=== PATIENT | female | born 1950 | race Caucasian/White ===

== ENCOUNTER → 2019-11-20 11:39 | Outpatient (CLI) | payer MEDICARE, OTHER, SELFPAY ==
--- NOTE | 2019-11-20 | DI.CT.S_ITS ---
PROCEDURE: CT ABDOMEN PELVIS W CON INDICATIONS: Right lower quadrant abdominal pain TECHNIQUE: After the administration of oral and intravenous contrast, 5 mm thick sections acquired from the diaphragms to the symphysis. 5 mm thick coronal and sagittal reformats were performed. For radiation dose reduction, the following was used: automated exposure control, adjustment of mA and/or kV according to patient size. COMPARISON: None. FINDINGS: Image quality: Excellent. ABDOMEN: Lung bases: Lung bases are clear. Heart size is normal. Solid organs: Liver is normal in size and enhancement. Gallbladder is unremarkable. Biliary system is non-dilated. Pancreas enhances normally. Spleen is normal in size and enhancement. No adrenal nodules. Kidneys are normal in size and enhancement, without hydronephrosis. Peritoneum and bowel: Focal relatively marked thickening of the wall of the mid ascending colon with mild diffuse cecal and proximal ascending colon wall thickening. Inflammatory change in the surrounding fat. Probable appendectomy clips. No free air or abscess cavity. No free fluid.4 Nodes and vessels: No retroperitoneal or mesenteric adenopathy. Aorta and inferior vena cava are normal in caliber. Miscellaneous: No ventral hernias. PELVIS: Genitourinary: Bladder wall thickness is normal. Miscellaneous: No inguinal hernias or adenopathy. Bones: No suspicious bony lesions. No vertebral body compression fractures. IMPRESSION: Thickening of the cecum, proximal ascending colon, and mid ascending colon, most significant in the mid ascending colon with surrounding inflammatory change in the adjacent fat. Differential diagnosis includes ischemic versus infectious versus inflammatory colitis. Dictated by: Dany Garza M.D. on 11/20/2019 at 13:57 Approved by: Dany Garza M.D. on 11/20/2019 at 14:05
[2019-11-20 12:32] LABS: Add Manual Diff / Slide Review NO; Basophils Absolute Auto 0 /uL (0-100); Basophils Percent Auto 0.7 % (0-2); Eosinophils Absolute Auto 100 /uL (0-450); Eosinophils Percent Auto 2.2 % (2-4); Hematocrit 40.1 % (36-46); Lymphocytes Absolute Auto 1100 /uL (1100-4500); Lymphocytes Percent Auto 24.4 % (25-40); Mean Corpuscular HGB Conc 34.9 % (30-36); Mean Corpuscular Hemoglobin 33.6 PG (26-34); Monocytes Absolute Auto 300 /uL (0-900); Monocytes Percent Auto 6.5 % (3-14); Neutrophils Absolute Auto 3100 /uL (1500-7000); Neutrophils Percent Auto 66.2 % (50-75); Platelet Count 275 X10^3/uL (150-400); Red Blood Cell Count 4.18 X10^6/uL (4.0-5.2); Red Cell Distribution Width 12.1 % (11.6-14.8); White Blood Cell Count 4.6 X10^3/uL (4.5-11.0)
[2019-11-20 12:43] LABS: Alanine Aminotransferase 19 IU/L (<35); Albumin 4.5 g/dL (3.5-5.0); Albumin Globulin Ratio 1.4 (1.0-2.8); Alkaline Phosphatase 77 U/L (38-126); Aspartate Aminotransferase 28 IU/L (14-36); BUN Creatinine Ratio 11.4 (6-22); Bilirubin Total 0.9 mg/dL (0.2-1.3); Blood Urea Nitrogen 8 mg/dL (7-17); Calcium 9.3 mg/dL (8.4-10.2); Carbon Dioxide 28 mmol/L (22-32); Chloride 99 mmol/L (98-107); Estimated Glomerular Filt Rate > 60.0 mL/min (>60); Globulin 3.2 g/dL (1.7-4.1); Glucose 95 mg/dL (80-110); HEMOLYSIS < 15 (0-50); Potassium 4.5 mmol/L (3.4-5.1); Sodium 136 mmol/L (137-145); Total Protein 7.7 g/dL (6.3-8.2)
[2019-11-20 13:00] LABS: Appearance Urine UA CLEAR; Bilirubin Urine UA NEGATIVE (NEGATIVE); Color Urine UA YELLOW; Glucose Urine UA NEGATIVE (Negative); Ketones Urine UA 1+ (NEGATIVE); Leukocyte Esterase Urine UA NEGATIVE (NEGATIVE); Nitrite Urine UA NEGATIVE (Negative); Occult Blood Urine UA TRACE-LYSED (Negative); Protein Urine UA NEGATIVE (Negative); Specific Gravity Urine UA <=1.005 (1.000-1.035); Urobilinogen Urine UA 0.2 E.U./dL (0.2)
[2019-11-20 13:11] LABS: Bacteria Urine Occasional (0-1); RBC Urine 0-1/HPF (0-5/HPF); Squamous Epithelial Cell Urine 0-1 /HPF (0-5/HPF); WBC Urine 0-1/HPF (0-5/HPF)
== END ==
PROVIDERS: Visit Provider Internal Medicine
DX: R10.31 Right lower quadrant pain (principal)
CPT/HCPCS: 36415; 74177; 80053; 81001; 85025; 87086; Q9967

== ENCOUNTER → 2019-11-20 12:17 | Outpatient (ROUT) | payer MEDICARE, OTHER, SELFPAY ==
[2019-11-20 12:19] LABS: Bacteria Urine None Seen; RBC Urine None Seen (0-5/HPF); WBC Urine None Seen (0-5/HPF)
[2019-11-20 14:19] LABS: Appearance Urine UA CLEAR; Bilirubin Urine UA NEGATIVE (NEGATIVE); Color Urine UA YELLOW; Glucose Urine UA NEGATIVE (Negative); Ketones Urine UA TRACE (NEGATIVE); Leukocyte Esterase Urine UA NEGATIVE (NEGATIVE); Nitrite Urine UA NEGATIVE (Negative); Occult Blood Urine UA NEGATIVE (Negative); Protein Urine UA NEGATIVE (Negative); Specific Gravity Urine UA <=1.005 (1.000-1.035); Urobilinogen Urine UA 0.2 E.U./dL (0.2)
[2019-11-20 14:49] LABS: Urine Comments Microscopic Normal
== END ==
PROVIDERS: PCP Internal Medicine; Visit Provider Internal Medicine
DX: R10.31 Right lower quadrant pain (principal)
CPT/HCPCS: 81001; 87086

== ENCOUNTER → 2024-05-23 08:46 | Outpatient (CLI) | payer MEDICARE, OTHER, SELFPAY ==
[2024-05-23 10:09] LABS: Hemoglobin A1C% w Est Avg Glu 5.2 % (4.0-6.0)
[2024-05-23 10:18] LABS: Cholesterol 207 mg/dL (140-199); HDL Cholesterol 95 mg/dL (40-60); LDL Cholesterol Calculated 78 mg/dL (<100); Triglycerides 168 mg/dL (35-150)
[2024-05-23 10:29] LABS: Add Manual Diff / Slide Review NO; Basophils Absolute Auto 0 /uL (0-100); Basophils Percent Auto 0.6 % (0-2); Eosinophils Absolute Auto 100 /uL (0-450); Eosinophils Percent Auto 1.2 % (2-4); Hematocrit 40.3 % (36-46); Hemoglobin 14.2 g/dL (12.0-16.0); Lymphocytes Absolute Auto 1000 /uL (1100-4500); Lymphocytes Percent Auto 18.5 % (25-40); Mean Corpuscular HGB Conc 35.2 % (30-36); Mean Corpuscular Hemoglobin 34.1 PG (26-34); Mean Corpuscular Volume 96.7 fL (80-100); Monocytes Absolute Auto 400 /uL (0-900); Monocytes Percent Auto 6.7 % (3-14); Neutrophils Absolute Auto 4100 /uL (1500-7000); Platelet Count 304 X10^3/uL (150-400); Red Blood Cell Count 4.17 X10^6/uL (4.0-5.2); Red Cell Distribution Width 12.3 % (11.6-14.8); White Blood Cell Count 5.6 X10^3/uL (4.5-11.0)
[2024-05-23 10:49] LABS: TSH w/ Reflex to FT4 0.94 uIU/mL (0.47-4.68)
== END ==
PROVIDERS: PCP Family Medicine; Referring Provider Family Medicine; Visit Provider Family Medicine
DX: Z00.00 Encounter for general adult medical examination without abnormal findings (principal); R53.83 Other fatigue; Z13.1 Encounter for screening for diabetes mellitus; Z13.220 Encounter for screening for lipoid disorders
CPT/HCPCS: 36415; 80061; 83036; 84443; 85025

== ENCOUNTER 2024-08-12 10:39 | Emergency (ER) | payer MEDICARE, OTHER, SELFPAY ==
[2024-08-12] VITALS (7 sets, daily range): BP systolic 111–139; BP diastolic 73–83; PULSE 60–80; RESP 15–28; TEMP 36.6; O2SAT 96–97; BMI 17.4
--- NOTE | 2024-08-12 10:55 | DI.RAD.S_ITS ---
PROCEDURE: XR CHEST 1V INDICATIONS: chest pain TECHNIQUE: One view of the chest was acquired. COMPARISON: None. FINDINGS: Surgical changes and devices: None. Lungs and pleura: There is hyperinflation and chronic interstitial changes without focal infiltrate, pleural effusion or pneumothorax. Mediastinum: Mediastinal contours appear normal. Heart size is normal. Bones and chest wall: No suspicious bony lesions. Overlying soft tissues appear unremarkable. IMPRESSION: Hyperinflation and chronic interstitial changes Approved by: Evan Thrasher M.D. on 08/12/2024 at 10:47
--- NOTE | 2024-08-12 11:12 | EKG_ITS ---
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
[2024-08-12 11:26] LABS: Add Manual Diff / Slide Review NO; Basophils Absolute Auto 0 /uL (0-100); Basophils Percent Auto 0.5 % (0-2); Eosinophils Absolute Auto 100 /uL (0-450); Eosinophils Percent Auto 1.2 % (2-4); Hematocrit 38.8 % (36-46); Hemoglobin 13.6 g/dL (12.0-16.0); Lymphocytes Absolute Auto 1500 /uL (1100-4500); Lymphocytes Percent Auto 18.8 % (25-40); Mean Corpuscular Hemoglobin 33.1 PG (26-34); Mean Corpuscular Volume 94.5 fL (80-100); Monocytes Absolute Auto 300 /uL (0-900); Monocytes Percent Auto 4.2 % (3-14); Neutrophils Absolute Auto 5800 /uL (1500-7000); Neutrophils Percent Auto 75.3 % (50-75); Platelet Count 308 X10^3/uL (150-400); Red Cell Distribution Width 11.9 % (11.6-14.8); White Blood Cell Count 7.7 X10^3/uL (4.5-11.0)
[2024-08-12 11:35] LABS: Prothrombin Time 11.2 SECONDS (9.4-12.5)
[2024-08-12 11:38] LABS: PTT Partial Thromboplastin Tim 33 SECONDS (25.1-36.5)
[2024-08-12 11:40] LABS: Alanine Aminotransferase 26 IU/L (<35); Albumin 4.3 g/dL (3.5-5.0); Albumin Globulin Ratio 1.7 (1.0-2.8); Alkaline Phosphatase 63 U/L (38-126); Aspartate Aminotransferase 35 IU/L (14-36); Bilirubin Total 0.6 mg/dL (0.2-1.3); Blood Urea Nitrogen 11 mg/dL (7-17); Calcium 8.9 mg/dL (8.4-10.2); Carbon Dioxide 23 mmol/L (22-32); Chloride 101 mmol/L (98-107); Creatine Kinase 78 U/L (30-135); Estimated Glomerular Filt Rate > 60 mL/min (>60); Globulin 2.6 g/dL (1.7-4.1); Glucose 101 mg/dL (80-110); HEMOLYSIS 22 (0-50); Lipase 112 U/L (23-300); Magnesium 1.8 mg/dL (1.6-2.3); Potassium 3.9 mmol/L (3.4-5.1); Sodium 132 mmol/L (137-145); Total Protein 6.9 g/dL (6.3-8.2)
[2024-08-12 11:51] LABS: NT-proBNP (BNP-Adult 18+) 40 pg/mL (<125); Troponin I < 0.012 ng/mL (0.01-0.034)
--- NOTE | 2024-08-12 12:23 | PC.NURSE ---
patient reports intermittant shooting pain down Right leg
--- NOTE | 2024-08-12 12:26 | ED_ITS ---
HPI - Arrhythmia/Palpitations General Chief Complaint: Arrhythmia/Palpitations Stated Complaint: Palpitations, L Leg Pain Time Seen by Provider: 08/12/24 11:24 History of Present Illness HPI narrative: Patient 74-year-old female history of asthma, presenting to heart palpitations. He reports she was having some palpitations yesterday off and on. She does not know how fast her heart was going. No chest pain or shortness of breath. It happened both at rest and with exertion. She has not feeling now she feels like she is better. She also occasionally gets left leg burning down her leg. It has like a sharp stinging sensation it lasts for 2nd and then is gone. She has no back pain. She was not sure if it was related. She has no weakness. She is going for colonoscopy in a couple of days and wanted to get checked out. Related Data Home Medications Medication Instructions Recorded Confirmed CHOLECALCIFEROL (VITAMIN D3) 0 iu PO Q DAY ##0 01/12/10 05/23/24 (Vitamin D3) MULTIVITAMIN (Multivitamin 0 cap PO Q DAY ##0 01/12/10 05/23/24 -) [CALCIUM] Q DAY ##0 01/12/10 05/23/24 Previous Rx's Medication Instructions Recorded albuterol sulfate 90 mcg/actuation 2 puff inhalation Q6H PRN 02/24/24 aerosol inhaler (ProAir HFA) bronchospasm #17 grams Allergies Allergy/AdvReac Type Severity Reaction Status Date / Time No Known Drug Allergies Allergy Verified 05/23/24 08:00 Blue cheese Allergy Uncoded 05/23/24 08:00 Patient History Medical History Osteopenia Asthma Social History Smoking Status: Never smoker second hand exposure: No alcohol intake: current substance use type: does not use Smoking Status: Never smoker Exam Initial Vital Signs Initial Vital Signs: Vital Signs Temperature 97.8 F 08/12/24 10:52 Pulse Rate 60 08/12/24 10:52 Respiratory Rate 16 08/12/24 10:52 Blood Pressure 139/83 08/12/24 10:52 Pulse Oximetry 97 08/12/24 10:52 Oxygen Delivery Method Room Air 08/12/24 10:52 GENERAL: Alert well-appearing 74-year-old female and in no acute distress. HEENT: Head atraumatic,EOMI, pupils reactive, face symmetric, moist mucous membranes CARDIOVASCULAR: Regular rate and rhythm without murmurs, rubs or gallops. RESPIRATORY: Breath sounds equal bilaterally, no wheezes rales or rhonchi. ABDOMEN: Soft, nontender. Normoactive bowel sounds all 4 quadrants. No guarding or rebound. EXTREMITIES: Normal range of motion, no clubbing or edema. Neurovascularly intact NEUROLOGICAL: Alert and oriented x4.Normal gait and speech. SKIN: Warm, dry, no laceration, no petechiae, no rashes or lesions. Scores HEART Score Heart Score history: Slightly Suspicious Heart Score EKG: Normal Heart Score Age: > or = 65 years old Heart Score risk factors: No known risk factors Heart Score troponin: < or = to normal limit Heart Score Total: 2 Course Orders Ordered: ED Orders 08/12/24 10:55 XR chest 1V Stat EKG-12 Lead Stat 08/12/24 11:10 Complete Blood Count AUTO DIFF Stat Comprehensive Metabolic Panel Stat Lipase Stat Magnesium Stat NT-proBNP (BNP-Adult 18+) Stat PTT Partial Thromboplastin Zhou Stat Prothrombin Time INR Stat Troponin & CK Cardiac Panel Stat Discontinued Medications Aspirin (Aspirin 81 Mg Chew Tab) 324 mg PO NOW ONE Stop: 08/12/24 10:56 Last Admin: 08/12/24 11:31 Dose: Not Given Documented By: CTS Vital Signs Vital signs: Vital Signs - 8 hr 08/12/24 10:52 08/12/24 11:08 08/12/24 11:08 Temperature 97.8 F Pulse Rate 60 80 Respiratory Rate 16 18 Blood Pressure 139/83 127/73 Pulse Oximetry 97 97 Oxygen Delivery Method Room Air Room Air 08/12/24 11:30 08/12/24 11:30 08/12/24 12:00 Temperature Pulse Rate 73 69 Respiratory Rate 28 H 15 Blood Pressure 130/73 Pulse Oximetry 96 96 Oxygen Delivery Method Room Air 08/12/24 12:22 08/12/24 12:22 08/12/24 12:23 Temperature Pulse Rate 69 Respiratory Rate 16 Blood Pressure 111/78 111/78 Pulse Oximetry 96 Oxygen Delivery Method 08/12/24 12:30 08/12/24 12:30 Temperature Pulse Rate 75 Respiratory Rate 15 Blood Pressure 118/76 Pulse Oximetry 96 Oxygen Delivery Method MDM - Arrhythmia/Palpitations Lab Data 08/12/24 11:10 08/12/24 11:10 Labs: Lab Results 08/12/24 Range/Units 11:10 WBC 7.7 (4.5-11.0) X10^3/uL RBC 4.10 (4.0-5.2) X10^6/uL Hgb 13.6 (12.0-16.0) g/dL Hct 38.8 (36-46) % MCV 94.5 (80-100) fL MCH 33.1 (26-34) PG MCHC 35.0 (30-36) % RDW 11.9 (11.6-14.8) % Plt Count 308 (150-400) X10^3/uL Neut % (Auto) 75.3 H (50-75) % Lymph % (Auto) 18.8 L (25-40) % [place] % (Auto) 4.2 (3-14) % Eos % (Auto) 1.2 L (2-4) % Baso % (Auto) 0.5 (0-2) % Neut # (Auto) 5800 (0747-3760) /uL Lymph # (Auto) 1500 (7430-9061) /uL [place] # (Auto) 300 (0-900) /uL Eos # (Auto) 100 (0-450) /uL Baso # (Auto) 0 (0-100) /uL PT 11.2 (9.4-12.5) SECONDS INR 1.0 (0.9-1.3) APTT 33 (25.1-36.5) SECONDS Sodium 132 L (137-145) mmol/L Potassium 3.9 (3.4-5.1) mmol/L Chloride 101 (98-107) mmol/L Carbon Dioxide 23 (22-32) mmol/L BUN 11 (7-17) mg/dL Creatinine 0.58 (0.52-1.04) mg/dL Estimated GFR > 60 (>60) mL/min BUN/Creatinine Ratio 19.0 (6-22) Glucose 101 (80-110) mg/dL Calcium 8.9 (8.4-10.2) mg/dL Magnesium 1.8 (1.6-2.3) mg/dL Total Bilirubin 0.6 (0.2-1.3) mg/dL AST 35 (14-36) IU/L ALT 26 (<35) IU/L Alkaline Phosphatase 63 (38-126) U/L Total Creatine Kinase 78 (30-135) U/L Troponin I < 0.012 (0.01-0.034) ng/mL NT-Pro-B Natriuret Pep 40 (<125) pg/mL Total Protein 6.9 (6.3-8.2) g/dL Albumin 4.3 (3.5-5.0) g/dL Globulin 2.6 (1.7-4.1) g/dL Albumin/Globulin Ratio 1.7 (1.0-2.8) Lipase 112 (23-300) U/L Imaging Data Chest x-ray: Radiologist's Impresson: PROCEDURE: XR CHEST 1V INDICATIONS: chest pain TECHNIQUE: One view of the chest was acquired. COMPARISON: None. FINDINGS: Surgical changes and devices: None. Lungs and pleura: There is hyperinflation and chronic interstitial changes without focal infiltrate, pleural effusion or pneumothorax. Mediastinum: Mediastinal contours appear normal. Heart size is normal. Bones and chest wall: No suspicious bony lesions. Overlying soft tissues appear unremarkable. IMPRESSION: Hyperinflation and chronic interstitial changes Approved by: Evan Thrasher M.D. on 08/12/2024 at 10:47 ECG Data Attestation: I personally reviewed and interpreted this ECG as follows: Prior ECG tracings: not available for review Interpretation: Normal sinus rhythm rate 77 NC interval 120 QRS 78 QTC 454 no ischemic changes PVC noted MDM Narrative Medical decision making narrative: Patient is 74-year-old female presenting today with heart palpitations yesterday. She noticed it both with the exertion and at rest. Also intermittently having some left leg sharp shooting pain which lasts less for a second. No weakness numbness or tingling. No known history of coronary artery disease or arrhythmia. Blood work today is overall reassuring no evidence of anemia electrolyte abnormality PAL troponin is negative X-ray shows hyperinflation consistent with asthma EKG does have PVC Patient is no longer having symptoms feeling better at this time recommend outpatient monitoring ZIO patch if needed. She does have an occasional PVC in the emergency department possible she is having frequent PVC. Heart score 2 Discharge Plan Departure Patient Disposition: Home Clinical Impression: Premature ventricular contraction Instructions: Premature Ventricular Beats Activity Restrictions/Additional Instructions: *You have been diagnosed with PVC *What to do: At this time blood work and EKG overall reassuring. You do have a skipped beat called a PVC. This is benign and not dangerous. Please talk to your primary care provider about a ZIO patch monitor to see how frequent you are having *Continue to take medications as directed *Follow up with your primary care provider in 2-3 days or call [phone] *Return to ER if you should have increasing chest pain palpitations dizziness lightheadedness or any new, worsening or concerning symptoms Prescriptions: No Action albuterol sulfate [ProAir HFA] 90 mcg/actuation HFA aerosol inhaler 2 puff INHALATION Q6H PRN (Reason: bronchospasm) Qty: 17 6RF CHOLECALCIFEROL (VITAMIN D3) (Vitamin D3) 0 iu PO Q DAY Qty: 0 MULTIVITAMIN (Multivitamin -) 0 cap PO Q DAY Qty: 0 [CALCIUM] Q DAY Qty: 0 Referrals: Shy Gomes MD [Primary Care Provider] - Stand Alone Forms: Patient Portal/API
== END 2024-08-12 12:53 | disposition home or self-care (01) ==
PROVIDERS: Emergency Provider Emergency Medicine; PCP Family Medicine
DX: I49.3 Ventricular premature depolarization (principal); R07.9 Chest pain, unspecified; M79.605 Pain in left leg
CPT/HCPCS: 36415; 71045; 80053; 82550; 83690; 83735; 83880; 84484; 85025; 85610; 85730; 93005; 99283; 99284

== ENCOUNTER → 2025-03-30 13:52 | Outpatient (CLI) | payer MEDICARE, OTHER, SELFPAY | PROVIDERS: PCP Family Medicine; Visit Provider Chiropractor | DX: R30.0 Dysuria (principal); N39.0 Urinary tract infection, site not specified; R31.9 Hematuria, unspecified | CPT/HCPCS: 81002; 87077; 87086; 87186 ==

== ENCOUNTER 2025-04-29 09:36 | Emergency (ER) | payer MEDICARE, OTHER, SELFPAY ==
[2025-04-29] VITALS (17 sets, daily range): BP systolic 141–195; BP diastolic 67–104; PULSE 65–74; RESP 16–55; TEMP 36.9; O2SAT 97–100; BMI 18.4
--- NOTE | 2025-04-29 09:47 | EKG_ITS ---
[id number], [place] [address] Test Date: 2025-04-29 Pat Name: Elif Roy Department: Room: Gender: Female Music Writer: BALDO : 1950 Requested By: Order Number: [id number] Reading MD: Francisco Rausch MD Measurements Intervals [place] Rate: 66 P: 72 [place]: 126 QRS: 77 QRSD: 86 T: 61 QT: 416 QTc: 436 Interpretive Statements Normal sinus rhythm Electronically Signed On 04-29-2025 11:46:14 PDT by Francisco Rausch MD
--- NOTE | 2025-04-29 09:56 | ED.SOB ---
HPI - SOB/Dyspnea General Chief Complaint: Shortness of Breath/Dyspnea Stated Complaint: Sent from [facility] skipping beats x 2 months Time Seen by Provider: 04/29/25 09:39 Source: patient Mode of arrival: Ambulatory Limitations: no limitations History of Present Illness HPI Narrative: 74-year-old female history of asthma only on albuterol inhaler presents with intermittent shortness of breath dyspnea on exertion for the past year but most recently she had a hike up and started to develop shortness breath and dyspnea on exertion and feeling less energy and heart palpitation. Patient denies active chest pain, fever, chills, body aches, worsening cough, leg swelling, leg pain. Other than what is stated 14 point review of system is negative. Related Data Home Medications ?Medication ?Instructions ?Recorded ?Confirmed CHOLECALCIFEROL (VITAMIN D3) 0 iu PO Q DAY ##0 01/12/10 04/02/25 (Vitamin D3) MULTIVITAMIN (Multivitamin 0 cap PO Q DAY ##0 01/12/10 04/02/25 -) [CALCIUM] Q DAY ##0 01/12/10 04/02/25 Previous Rx's ?Medication ?Instructions ?Recorded triamcinolone acetonide 0.1 % 1 applic topical BID #30 grams 01/30/25 topical cream albuterol sulfate 90 mcg/actuation 2 puff inhalation Q6H PRN 03/27/25 aerosol inhaler bronchospasm #17 grams prednisone 20 mg tablet 20 mg PO BID #10 tabs 04/29/25 Allergies Allergy/AdvReac Type Severity Reaction Status Date / Time Blue cheese Allergy Uncoded 04/29/25 09:48 Review of Systems Review of Systems ROS Unobtainable: All systems reviewed & are unremarkable except as noted in HPI and below Patient History Medical History Osteopenia Asthma Social History second hand exposure: No alcohol intake: current substance use type: does not use Smoking Status: Never smoker Exam Narrative Exam Narrative: GENERAL: [7] year old patient appears stated age. Well-developed patient, in mild distress. HEAD: Atraumatic. Normocephalic. EYES: Pupils equal round and reactive. Extraocular motions intact. No scleral icterus. No injection or drainage. ENT: Nose without bleeding, purulent drainage. Throat without erythema, tonsillar hypertrophy or exudate. Airway patent. NECK: Trachea midline. Non tender CARDIOVASCULAR: Regular rate and rhythm without murmurs, gallops, or rubs. RESPIRATORY: Clear to auscultation. Breath sounds equal bilaterally. No wheezes, rales, or rhonchi. GASTROINTESTINAL: Abdomen soft, non-tender, nondistended. EXTREMITIES: No edema or joint tenderness. BACK: Nontender without deformity or crepitance. No flank tenderness. NEURO: AOx3. SKIN: No rash or erythema of visible areas Initial Vital Signs Initial Vital Signs: Vital Signs Temperature 98.4 F 04/29/25 09:48 Pulse Rate 69 04/29/25 09:48 Respiratory Rate 19 04/29/25 09:48 Blood Pressure 195/92 H 04/29/25 09:48 Pulse Oximetry 99 04/29/25 09:48 Oxygen Delivery Method Room Air 04/29/25 09:48 Scores HEART Score Heart Score history: Slightly Suspicious Heart Score EKG: Normal Heart Score Age: > or = 65 years old Heart Score risk factors: No known risk factors Heart Score troponin: < or = to normal limit Heart Score Total: 2 Course Vital Signs Vital signs: Vital Signs - 8 hr 04/29/25 09:48 Temperature 98.4 F Pulse Rate 69 Respiratory Rate 19 Blood Pressure 195/92 H Pulse Oximetry 99 Oxygen Delivery Method Room Air MDM - SOB/Dyspnea Imaging Data CT scan - chest: Radiologist's Impression: [place] [address] CT Scan Report Signed Patient: Elif Roy MR#: [id number] : 1950 Acct:[id number] Age/Sex: 74 / F Date of Service: 04/29/25 Loc: ED Accession Number: [id number] Procedure: CT angio chest PE protocol Ordering Provider: Francisco Mccloud D.O. PROCEDURE: CT ANGIO CHEST PE PROTOCOL INDICATIONS: chest pain sob enriquez / elevated dimer TECHNIQUE: After the administration of intravenous contrast, 2 mm thick sections acquired from the pulmonary apices to the posterior costophrenic angles. 3-dimensional maximum intensity projection (MIP) coronal and sagittal reformats were then acquired through the thorax. For radiation dose reduction, the following was used: automated exposure control, adjustment of mA and/or kV according to patient size. COMPARISON: [facility], CR, XR CHEST 1V, 08/12/2024, 11:22. [facility], CR, XR CHEST 1V, 04/29/2025, 9:59. FINDINGS: Image quality: Diagnostic. Pulmonary arteries: Pulmonary arteries are normal in size, and demonstrate no intraluminal filling defects to suggest central pulmonary embolism. Lower Neck: No enlarged lymph nodes. Thyroid: No thyroid nodules which require sonographic follow up, per consensus guidelines. Axillae: No enlarged lymph nodes. Chest Wall: Unremarkable. Bones: Unremarkable. Lungs and Pleura: No pneumothorax or pleural effusions. Biapical pleural-parenchymal scarring, with a slightly more nodular appearance on the right, for example, measuring approximately 1.6 x 1.7 cm at the lateral right upper lobe (). Mild subpleural reticulonodular opacities in the upper lobes for example on the right) . No consolidation or suspicious nodules. Heart: Heart size is normal. No pericardial effusion. Thoracic Vessels: Ascending thoracic aorta measures approximately 3.5 cm in diameter at the level of the right pulmonary artery. Mediastinum and [place]: No enlarged lymph nodes. Esophagus: No wall thickening. No hiatal hernia. Upper Abdomen: Visualized upper abdomen solid organs and bowel loops appear normal. IMPRESSION: 1. No acute pulmonary embolus. 2. Peripheral subpleural reticulonodular opacities in the upper lobes may be related to interstitial lung disease versus possibly an atypical infection. 3. Biapical pleural-parenchymal scarring, with somewhat more masslike configuration at the lateral right upper lobe. Consider 3 month follow-up CT to demonstrate stability. ECG Data Interpretation: NSR HR 66 NJ 126 QRS [address]-t wave change Change from 08/12/24 MDM Narrative Medical decision making narrative: Vital signs, nurse triage note, medication list, previous ER visits, and all imaging studies reviewed. CT chest showed peripheral subpleural reticular nodular opacities in the upper lobe may be related to interstitial lung disease versus possibly an atypical infection. Biapical pleural parenchymal scarring was somewhat more masslike configuration at the lateral upper right lobe and to follow up for [address] scan. EKG shows sinus rhythm no ST T wave changes. Heart score 2. Two sets of troponin are negative. WBC normal at 4.7 D-dimer was 1255 sodium 132 glucose 106 TSH 1.12 Patient given DuoNeb Solu-Medrol 125 mg IV here. Differential diagnosis includes PE, asthma, exacerbation, COVID, flu, unstable angina, STEMI NSTEMI, pneumonia anxiety GERD. Discharge Plan Departure Patient Disposition: Home Clinical Impression: Mass of upper lobe of right lung, Interstitial lung disease Instructions: Interstitial Lung Disease Activity Restrictions/Additional Instructions: Return with new or worsening symptoms. Take your medicines as directed. Follow up PCP in 1-2 weeks if no improvement in symptoms. Follow up for [address] scan as outpatient regarding right upper lobe on today's CT scan Prescriptions: New prednisone 20 mg tablet 20 mg PO BID Qty: 10 0RF No Action triamcinolone acetonide 0.1 % cream 1 applic topical BID Qty: 30 0RF Rx Instructions: Apply to the affected area on your neck for up to 2 weeks CHOLECALCIFEROL (VITAMIN D3) (Vitamin D3) 0 iu PO Q DAY Qty: 0 MULTIVITAMIN (Multivitamin -) 0 cap PO Q DAY Qty: 0 [CALCIUM] Q DAY Qty: 0 albuterol sulfate 90 mcg/actuation HFA aerosol inhaler 2 puff INHALATION Q6H PRN (Reason: bronchospasm) Qty: 17 6RF Referrals: Shy Gomes MD [Primary Care Provider, Family Practice] Stand Alone Forms: Patient Portal/API
--- NOTE | 2025-04-29 09:58 | DI.RAD.S_ITS ---
PROCEDURE: XR CHEST 1V INDICATIONS: Shortness of breath TECHNIQUE: One view of the chest was acquired. COMPARISON: [facility], CR, XR CHEST 1V, 08/12/2024, 11:22. FINDINGS: Surgical changes and devices: None. Lungs and pleura: Hyperexpanded lungs can be seen in setting of COPD. No focal consolidation. No pleural effusions or pneumothorax. Mediastinum: Mediastinal contours appear normal. Heart size is normal. Bones and chest wall: No suspicious bony lesions. Overlying soft tissues appear unremarkable. IMPRESSION: No acute cardiopulmonary abnormality is seen. Approved by: Charles Robert M.D. on 04/29/2025 at 10:36
[2025-04-29] MEDS: ALBUTEROL/IPRATROPIUM 3 ML AMPUL INH (10:13)
[2025-04-29 10:15] LABS: Add Manual Diff / Slide Review NO; Hematocrit 39.7 % (36-46); Hemoglobin 13.8 g/dL (12.0-16.0); Lymphocytes Absolute Auto 1200 /uL (1100-4500); Mean Corpuscular HGB Conc 34.7 % (30-36); Mean Corpuscular Hemoglobin 33.2 PG (26-34); Mean Corpuscular Volume 95.6 fL (80-100); Platelet Count 286 X10^3/uL (150-400)
[2025-04-29 10:22] LABS: INR 1.0 (0.9-1.3); Prothrombin Time 11.3 SECONDS (9.4-12.5)
[2025-04-29 10:26] LABS: Alanine Aminotransferase 26 IU/L (<35); Albumin 4.3 g/dL (3.5-5.0); Albumin Globulin Ratio 1.5 (1.0-2.8); Alkaline Phosphatase 74 U/L (38-126); Blood Urea Nitrogen 7 mg/dL (7-17); Calcium 8.9 mg/dL (8.4-10.2); Carbon Dioxide 29 mmol/L (22-32); Chloride 99 mmol/L (98-107); Estimated Glomerular Filt Rate > 60 mL/min (>60); Globulin 2.8 g/dL (1.7-4.1); Glucose 106 mg/dL (70-99); HEMOLYSIS < 15 (0-50); Lactate (Lactic Acid) 0.7 mmol/L (0.7-2.1); Potassium 3.8 mmol/L (3.4-5.1); Sodium 132 mmol/L (137-145); Total Protein 7.1 g/dL (6.3-8.2)
--- NOTE | 2025-04-29 10:33 | DI.CT.S_ITS ---
PROCEDURE: CT ANGIO CHEST PE PROTOCOL INDICATIONS: chest pain sob enriquez / elevated dimer TECHNIQUE: After the administration of intravenous contrast, 2 mm thick sections acquired from the pulmonary apices to the posterior costophrenic angles. 3-dimensional maximum intensity projection (MIP) coronal and sagittal reformats were then acquired through the thorax. For radiation dose reduction, the following was used: automated exposure control, adjustment of mA and/or kV according to patient size. COMPARISON: [facility], CR, XR CHEST 1V, 08/12/2024, 11:22. [facility], CR, XR CHEST 1V, 04/29/2025, 9:59. FINDINGS: Image quality: Diagnostic. Pulmonary arteries: Pulmonary arteries are normal in size, and demonstrate no intraluminal filling defects to suggest central pulmonary embolism. Lower Neck: No enlarged lymph nodes. Thyroid: No thyroid nodules which require sonographic follow up, per consensus guidelines. Axillae: No enlarged lymph nodes. Chest Wall: Unremarkable. Bones: Unremarkable. Lungs and Pleura: No pneumothorax or pleural effusions. Biapical pleural- parenchymal scarring, with a slightly more nodular appearance on the right, for example, measuring approximately 1.6 x 1.7 cm at the lateral right upper lobe (). Mild subpleural reticulonodular opacities in the upper lobes for example 59 on the right) . No consolidation or suspicious nodules. Heart: Heart size is normal. No pericardial effusion. Thoracic Vessels: Ascending thoracic aorta measures approximately 3.5 cm in diameter at the level of the right pulmonary artery. Mediastinum and [place]: No enlarged lymph nodes. Esophagus: No wall thickening. No hiatal hernia. Upper Abdomen: Visualized upper abdomen solid organs and bowel loops appear normal. IMPRESSION: 1. No acute pulmonary embolus. 2. Peripheral subpleural reticulonodular opacities in the upper lobes may be related to interstitial lung disease versus possibly an atypical infection. 3. Biapical pleural-parenchymal scarring, with somewhat more masslike configuration at the lateral right upper lobe. Consider 3 month follow-up CT to demonstrate stability. Approved by: Charles Robert M.D. on 04/29/2025 at 11:17
[2025-04-29 10:38] LABS: NT-proBNP (BNP-Adult 18+) 25 pg/mL (<125); Troponin I < 0.012 ng/mL (0.01-0.034)
[2025-04-29 10:58] LABS: Thyroid Stimulating Hormone 1.12 uIU/mL (0.47-4.68)
[2025-04-29 11:58] LABS: Magnesium 1.8 mg/dL (1.6-2.3)
[2025-04-29 12:11] LABS: Troponin I < 0.012 ng/mL (0.01-0.034)
== END 2025-04-29 13:05 | disposition home or self-care (01) ==
PROVIDERS: Emergency Provider Family Medicine; PCP Family Medicine
DX: J84.9 Interstitial pulmonary disease, unspecified (principal); R91.8 Other nonspecific abnormal finding of lung field; R00.2 Palpitations; R07.9 Chest pain, unspecified
CPT/HCPCS: 36415; 71045; 71275; 80053; 83605; 83735; 83880; 84443; 84484; 85025; 85379; 85610; 93005; 93010; 94640; 96374; 99284; J2919; Q9967

== ENCOUNTER → 2025-05-22 09:49 | Outpatient (CLI) | payer MEDICARE, OTHER, SELFPAY | LOC: RESP 09:50 | PROVIDERS: PCP Family Medicine; Referring Provider Family Medicine; Visit Provider Family Medicine | DX: J84.89 Other specified interstitial pulmonary diseases (principal); R94.2 Abnormal results of pulmonary function studies | CPT/HCPCS: 94060; 94726; 94729 ==